=== PATIENT | female | born 1955 | race Caucasian/White ===

== ENCOUNTER 2021-09-15 08:29 | Inpatient (IN) ==
[2021-09-15] MEDS ORDERED: ONDANSETRON INJ 2 MG/ML 2 ML VIAL IV STA (08:46)
--- NOTE | 2021-09-15 08:52 | Emergency Department Note ---
History of Present Illness General Chief complaint: Fall Time Seen by Provider: 09/15/21 08:39 History of Present Illness Maximum Pain Intensity: 6 66-year-old female presents to the ED with a chief complaint of fall off the couch as well as nausea and vomiting for the past several days. The patient states that she recently started on some oral antibiotics for a cough. She states that since starting the antibiotic she has developed nausea and vomiting. She has not been able to eat anything for the past several days. She had fallen on the floor around 630 uncertain if a.m. or p.m. until her sisters found her. She does report some upper back pain related to her fall. She was brought to the hospital for evaluation. Denies any shortness of breath. No chest pains. No abdominal pains. No additional complaints. Home Medications Medication Instructions Recorded Confirmed Type aspirin 81 mg capsule 81 mg PO DAILY #30 cap 03/24/21 09/15/21 Rx atorvastatin 40 mg tablet 40 mg PO DAILY #30 tab 03/24/21 09/15/21 Rx blood sugar diagnostic (OneTouch #100 ea 03/24/21 09/15/21 Rx Verio test strips) carvedilol 6.25 mg tablet 6.25 mg PO BID #180 tab 03/24/21 09/15/21 Rx cetirizine 10 mg tablet (Zyrtec) 10 mg PO DAILY PRN #30 tab 03/24/21 09/15/21 Rx dulaglutide 0.75 mg/0.5 mL 0.75 mg SUBCUT .weekly #0.5 ml 03/24/21 09/15/21 Rx subcutaneous pen injector (Trulicity) fluticasone propionate 50 1 spray INTRANASAL DAILY #16 g 03/24/21 09/15/21 Rx mcg/actuation nasal spray,suspension (Flonase Allergy Relief) insulin aspart U-100 100 unit/mL 30 unit SUBCUT TID #15 ml 03/24/21 09/15/21 Rx (3 mL) subcutaneous pen (Novolog Flexpen U-100 Insulin aspart) insulin glargine 100 unit/mL 25 unit SUBCUT DAILY #10 ml 03/24/21 09/15/21 Rx subcutaneous solution (Lantus U-100 Insulin) lisinopril 2.5 mg tablet 2.5 mg PO DAILY #30 tab 03/24/21 09/15/21 Rx pantoprazole 40 mg tablet,delayed 40 mg PO DAILY #30 tab 03/24/21 09/15/21 Rx release pen needle, diabetic 31 gauge x #50 ea 03/24/21 09/15/21 Rx 5/16" (Easy Comfort Pen [place]) Allergies Allergy/AdvReac Type Severity Reaction Status Date / Time egg Allergy Mild Verified 09/15/21 10:35 Penicillins Allergy Mild Verified 09/15/21 10:35 codeine Allergy Verified 09/15/21 10:35 Sulfa (Sulfonamide Allergy Verified 09/15/21 10:35 Antibiotics) Past Med/Surg History Medical History History of heart attack Surgical History History of surgical removal of ganglion cyst Hx of cholecystectomy Hx of tonsillectomy Family History Other Breast cancer Diabetes Myocardial infarction Denies family history of Ovarian cancer Prostate cancer Colorectal cancer Social History Smoking Status: Unknown if ever smoked Age Quit Using Tobacco: 61; Second Hand Exposure: No; Hx Alcohol Use: No Hx Substance Use: No Preferred Language: Kazakh Visual Impairment: No Limitations Hearing Ability: Normal marital status: / Current Living Situation: Alone current occupational status: retired Feels Safe at Home: Yes Review of Systems A total of 10 systems reviewed and were otherwise negative Physical Exam Vital Signs Vital Signs - 24 hr 09/15/21 08:38 09/15/21 08:47 09/15/21 10:00 Temperature 36.9 C Temperature Source Oral Pulse Rate [Apical] 99 H Pulse Rhythm [Apical] Regular Respiratory Rate 18 18 18 Respiratory Effort / Characteristics Non-Labored Respiratory Depth Normal Respiratory Pattern Regular Blood Pressure 144/88 H Blood Pressure [Left Arm] 144/88 H Blood Pressure Mean 106 Blood Pressure Mean [Left Arm] 106 Blood Pressure Position [Left Arm] Lying Pulse Oximetry 98 98 Oxygen Delivery Method Room Air Room Air Room Air Sepsis Recent Fever Within 48 Hours No Sepsis New/Unexplained Change in Mental Status No Sepsis Action Taken by Nursing No Action Required CONSTITUTIONAL/VITAL SIGNS: Reviewed / noted above. GENERAL: Non-toxic in appearance. Strong smell of ketones in the room. Only confused with regards to recalling certain information especially regarding the events of the night. INTEGUMENTARY: Warm, dry, and [place]. HEAD: Normocephalic. EYES: without scleral icterus or trauma. ENT/OROPHARYNX: clear and slightly dry. LYMPHADENOPATHY/NECK: Is supple without lymphadenopathy or meningismus. RESPIRATORY: Clear to auscultation bilaterally. No increased work of breathing. CARDIOVASCULAR: Regular rate and rhythm. GI/ABDOMEN: Soft and nontender. No organomegaly or pulsatile mass. EXTREMITIES: Warm and well perfused. BACK: No CVA tenderness. NEUROLOGICAL: Intact without focal deficits. PSYCHIATRIC: normal affect. MUSCULOSKELETAL: Normally developed with good muscle tone. TRIAGE NURSING DOCUMENTATION REVIEWED. Course Administered Medications Discontinued Medications Sodium Chloride (Nss 1000ml) 1,000 mls @ 999 mls/hr IV .Q1H1M GELA Stop: 09/15/21 10:00 Last Admin: 09/15/21 09:16 Dose: 999 mls/hr Documented by: [id number] Ondansetron HCl (Ondansetron Inj 2 Mg/Ml 2 Ml Vial) 4 mg IV NOW STA Stop: 09/15/21 08:47 Last Admin: 09/15/21 09:17 Dose: 4 mg Documented by: [id number] Medical Decision Making Differential Diagnosis Differential includes acute coronary syndrome, myocardial infarction, CVA, TIA, anemia, infection, pneumonia, UTI, pyelonephritis, poor nutrition, dehydration, electrolyte disturbance,hypoglycemia, ketoacidosis, spine injury, rib injury. Medical Records Attestation: I reviewed the patient's medical records. Home Medications Current Medication List: was personally reviewed by me Laboratory Data Attestation: I reviewed the patient's lab results. Result diagrams: 09/15/21 08:58 09/15/21 08:58 Lab Results 09/15/21 09/15/21 09/15/21 Range/Units 08:48 08:58 08:58 WBC (4.8-10.8) K/uL RBC (4.2-5.4) M/uL Hgb (12.0-16.0) g/dL Hct (37-47) % MCV (80-100) fL MCH (25-34) pg MCHC (32-36) g/dL RDW Std Deviation (36.4-46.3) fL RDW Coeff of Charles (11.5-14.5) % Plt Count (130-400) K/uL MPV (7.4-10.4) fL Immature Gran % (Auto) % Neut % (Auto) % Lymph % (Auto) % [place] % (Auto) % Eos % (Auto) % Baso % (Auto) % Neut # (Auto) (1.4-6.5) K/uL Lymph # (Auto) (1.2-3.4) K/uL [place] # (Auto) (0.11-0.59) K/uL Eos # (Auto) (0-0.5) K/uL Baso # (Auto) (0-0.2) K/uL Immature Gran # (Auto) (0.00-0.02) K/uL VBG pH (7.36-7.41) VBG pCO2 (38-50) mmHg VBG pO2 mmHg VBG HCO3 mmol/L VBG O2 Saturation % VBG Base Excess mEq/L Barometric Pressure mm/Hg Sodium 127 L (136-145) mmol/L Potassium 4.5 (3.5-5.1) mmol/L Chloride 93 L (98-107) mmol/L Carbon Dioxide 12 L (21-32) mmol/L Anion Gap 22 H (3-11) BUN 26 H (6-23) mg/dl Creatinine 1.02 (0.6-1.2) mg/dl Est Cr Clr Drug Dosing 51.0 ml/min Est GFR ( Amer) 65.9 ml/min Est GFR (Non-Af Amer) 56.9 ml/min BUN/Creatinine Ratio 25.5 H (10-20) Glucose 378 H* (70-99(Fasting)) mg/dl Lactate 1.0 (0.4-2.0) mmol/L Calcium 9.5 (8.5-10.1) mg/dl Magnesium 1.9 (1.7-2.4) mg/dl Total Bilirubin 0.6 (0.2-1.0) mg/dl AST 13 (13-39) U/L ALT 9 (7-52) U/L Alkaline Phosphatase 120 H (34-104) U/L Total Creatine Kinase 76 (26-192) U/L Total Protein 8.0 (6.0-8.3) gm/dl Albumin 3.5 (3.4-5.0) gm/dl Globulin 4.5 H (2.5-4.0) gm/dl Albumin/Globulin Ratio 0.8 L (0.9-2) TSH (0.300-4.500) uIu/ml Urine Color Yellow Urine Appearance Cloudy A (Clear) Urine pH 5.0 (4.5-7.5) Ur Specific [place] 1.029 (1.000-1.030) Urine Protein 2+ H (Negative) Urine Glucose (UA) 3+ H (Negative) Urine Ketones 4+ H (Negative) Urine Blood 1+ H (Negative) Urine Nitrite Negative (Negative) Urine Bilirubin Negative (Negative) Urine Urobilinogen Negative (Negative) Ur Leukocyte Esterase Negative (Negative) Urine WBC (Auto) >30 H (0-5) /hpf Urine RBC (Auto) 0-4 (0-4) /hpf U Hyaline Cast (Auto) 1-5 (0-5) /lpf U Epithel Cells (Auto) 10-20 H (0-5) /lpf Urine Bacteria (Auto) 1+ H (Negative) Urine Yeast Budding A (None Prsent) SARS-CoV-2, RNA, NAAT (NEGATIVE) 09/15/21 09/15/21 09/15/21 Range/Units 08:58 08:58 08:58 WBC 16.53 H (4.8-10.8) K/uL RBC 4.65 (4.2-5.4) M/uL Hgb 13.8 (12.0-16.0) g/dL Hct 40.7 (37-47) % MCV 87.5 (80-100) fL MCH 29.7 (25-34) pg MCHC 33.9 (32-36) g/dL RDW Std Deviation 40.8 (36.4-46.3) fL RDW Coeff of [place] 12.8 (11.5-14.5) % Plt Count 376 (130-400) K/uL MPV 10.3 (7.4-10.4) fL Immature Gran % (Auto) 0.2 % Neut % (Auto) 90.4 % Lymph % (Auto) 5.4 % [place] % (Auto) 3.9 % Eos % (Auto) 0.0 % Baso % (Auto) 0.1 % Neut # (Auto) 14.93 H (1.4-6.5) K/uL Lymph # (Auto) 0.89 L (1.2-3.4) K/uL [place] # (Auto) 0.65 H (0.11-0.59) K/uL Eos # (Auto) 0.00 (0-0.5) K/uL Baso # (Auto) 0.02 (0-0.2) K/uL Immature Gran # (Auto) 0.04 H (0.00-0.02) K/uL VBG pH 7.24 L (7.36-7.41) VBG pCO2 31 L (38-50) mmHg VBG pO2 33 mmHg VBG HCO3 13 mmol/L VBG O2 Saturation 63.7 % VBG Base Excess -13.1 mEq/L Barometric Pressure 737.9 mm/Hg Sodium (136-145) mmol/L Potassium (3.5-5.1) mmol/L Chloride (98-107) mmol/L Carbon Dioxide (21-32) mmol/L Anion Gap (3-11) BUN (6-23) mg/dl Creatinine (0.6-1.2) mg/dl Est Cr Clr Drug Dosing ml/min Est GFR ( Amer) ml/min Est GFR (Non-Af Amer) ml/min BUN/Creatinine Ratio (10-20) Glucose (70-99(Fasting)) mg/dl Lactate (0.4-2.0) mmol/L Calcium (8.5-10.1) mg/dl Magnesium (1.7-2.4) mg/dl Total Bilirubin (0.2-1.0) mg/dl AST (13-39) U/L ALT (7-52) U/L Alkaline Phosphatase (34-104) U/L Total Creatine Kinase (26-192) U/L Total Protein (6.0-8.3) gm/dl Albumin (3.4-5.0) gm/dl Globulin (2.5-4.0) gm/dl Albumin/Globulin Ratio (0.9-2) TSH 1.477 (0.300-4.500) uIu/ml Urine Color Urine Appearance (Clear) Urine pH (4.5-7.5) Ur Specific [place] (1.000-1.030) Urine Protein (Negative) Urine Glucose (UA) (Negative) Urine Ketones (Negative) Urine Blood (Negative) Urine Nitrite (Negative) Urine Bilirubin (Negative) Urine Urobilinogen (Negative) Ur Leukocyte Esterase (Negative) Urine WBC (Auto) (0-5) /hpf Urine RBC (Auto) (0-4) /hpf U Hyaline Cast (Auto) (0-5) /lpf U Epithel Cells (Auto) (0-5) /lpf Urine Bacteria (Auto) (Negative) Urine Yeast (None Prsent) SARS-CoV-2, RNA, NAAT (NEGATIVE) 09/15/21 Range/Units 09:49 WBC (4.8-10.8) K/uL RBC (4.2-5.4) M/uL Hgb (12.0-16.0) g/dL Hct (37-47) % MCV (80-100) fL MCH (25-34) pg MCHC (32-36) g/dL RDW Std Deviation (36.4-46.3) fL RDW Coeff of Charles (11.5-14.5) % Plt Count (130-400) K/uL MPV (7.4-10.4) fL Immature Gran % (Auto) % Neut % (Auto) % Lymph % (Auto) % [place] % (Auto) % Eos % (Auto) % Baso % (Auto) % Neut # (Auto) (1.4-6.5) K/uL Lymph # (Auto) (1.2-3.4) K/uL [place] # (Auto) (0.11-0.59) K/uL Eos # (Auto) (0-0.5) K/uL Baso # (Auto) (0-0.2) K/uL Immature Gran # (Auto) (0.00-0.02) K/uL VBG pH (7.36-7.41) VBG pCO2 (38-50) mmHg VBG pO2 mmHg VBG HCO3 mmol/L VBG O2 Saturation % VBG Base Excess mEq/L Barometric Pressure mm/Hg Sodium (136-145) mmol/L Potassium (3.5-5.1) mmol/L Chloride (98-107) mmol/L Carbon Dioxide (21-32) mmol/L Anion Gap (3-11) BUN (6-23) mg/dl Creatinine (0.6-1.2) mg/dl Est Cr Clr Drug Dosing ml/min Est GFR ( Amer) ml/min Est GFR (Non-Af Amer) ml/min BUN/Creatinine Ratio (10-20) Glucose (70-99(Fasting)) mg/dl Lactate (0.4-2.0) mmol/L Calcium (8.5-10.1) mg/dl Magnesium (1.7-2.4) mg/dl Total Bilirubin (0.2-1.0) mg/dl AST (13-39) U/L ALT (7-52) U/L Alkaline Phosphatase (34-104) U/L Total Creatine Kinase (26-192) U/L Total Protein (6.0-8.3) gm/dl Albumin (3.4-5.0) gm/dl Globulin (2.5-4.0) gm/dl Albumin/Globulin Ratio (0.9-2) TSH (0.300-4.500) uIu/ml Urine Color Urine Appearance (Clear) Urine pH (4.5-7.5) Ur Specific [place] (1.000-1.030) Urine Protein (Negative) Urine Glucose (UA) (Negative) Urine Ketones (Negative) Urine Blood (Negative) Urine Nitrite (Negative) Urine Bilirubin (Negative) Urine Urobilinogen (Negative) Ur Leukocyte Esterase (Negative) Urine WBC (Auto) (0-5) /hpf Urine RBC (Auto) (0-4) /hpf U Hyaline Cast (Auto) (0-5) /lpf U Epithel Cells (Auto) (0-5) /lpf Urine Bacteria (Auto) (Negative) Urine Yeast (None Prsent) SARS-CoV-2, RNA, NAAT NEGATIVE (NEGATIVE) Imaging Data Radiologist's Impression: Chest X-Ray 09/15/21 08:47 XR chest 1V portable HISTORY: 66 years-old Female weakness acute chest and back pain with weakness COMPARISON: CT thoracic spine of same day TECHNIQUE: Portable AP view of the chest FINDINGS: The cardiomediastinal and hilar silhouettes are within normal limits. No pneumothorax, pleural effusion, airspace consolidation or overt pulmonary edema. Degenerative changes of the shoulders and spine. IMPRESSION: No acute process. ACT 112: Negative or not required by law. The above report was generated using voice recognition software. It may contain grammatical, syntax or spelling errors. Electronically signed by: Rick Gallego M.D. 09/15/2021 10:[address] 09/15/21 08:51 CT cervical spine wo con CLINICAL HISTORY: fall TECHNIQUE: Multidetector row helical CT of the cervical spine was performed without administration of intravenous contrast. Coronal and sagittal reformations were obtained. Automated dose lowering techniques and/or adjustment according to patient size were utilized for this exam. Comparison: None available at the time of this dictation. FINDINGS: No acute fractures or subluxations are identified. The vertebral body heights and disk spaces are well maintained. The alignment is normal. Nuchal ligament calcifications are seen. IMPRESSION: No evidence of acute bony injury. ACT 112: Negative or not required by law. Electronically signed by: Warren Patel M.D. 09/15/2021 10:[address] 09/15/21 08:51 CT head/brain wo con CLINICAL HISTORY: 66 years-old Female with fall, confusion. Acute head injury status post fall. Acutely altered mental status TECHNIQUE: Multiple axial CT images of the head were obtained without contrast. A dose lowering technique was utilized adhering to the principles of ALARA. COMPARISON: CT cervical and thoracic spine studies of same day FINDINGS: No acute intracranial hemorrhage, midline shift, intracranial mass, hydrocephalus, territorial ischemia or abnormal extra-axial collection. Age- related involutional changes. White matter hypodensities suggestive of chronic microvascular ischemic disease. Mild ventriculomegaly, likely on an ex vacuo ba sis. Chronic periventricular left frontal lobe infarcts. Cerebral vascular calcifications. The calvarium is intact. Mucosal thickening of the paranasal sinuses, moderate within the ethmoid air cells. Aerosolized secretions within the left sphenoid sinus. Mastoid air cells and middle ear cavities are clear. Unremarkable soft tissues and orbits. IMPRESSION: No acute intracranial abnormality or calvarial fracture. ACT 112: Negative or not required by law. The above report was generated using voice recognition software. It may contain grammatical, syntax or spelling errors. Electronically signed by: Rick Gallego M.D. 09/15/2021 9:[address] 09/15/21 08:51 CT thoracic spine wo con HISTORY: 66 years-old Female fall acute mid back pain status post fall COMPARISON: CT cervical spine of same day TECHNIQUE: Multiple axial CT images of the thoracic spine were obtained without the use of IV contrast. Coronal and sagittal reformatted images were also submitted for review. A dose lowering technique was used consistent with the principals of ALINA. FINDINGS: Cardiomegaly with extensive mitral annular and coronary artery calcifications. Ectasia of the ascending thoracic aorta measures up to 3.9 cm. Dilated pulmonary artery may represent pulmonary arterial hypertension. Mediastinal and hilar lymph nodes measure within the upper limits of normal at 10 mm which are nonspecific. Tiny hiatal hernia suggested. Cholecystectomy. Bronchial wall thickening with mucous plugging. No pneumothorax identified. There is no paravertebral edema identified. There is mostly mild multilevel int ervertebral disc space narrowing with associated spondylitic spurring and facet arthrosis. No acute fracture or subluxation is identified. The imaged ribs appear intact. No high-grade central canal or neural foraminal narrowing is identified. IMPRESSION: No acute fracture or subluxation. ACT 112: Negative or not required by law. The above report was generated using voice recognition software. It may contain grammatical, syntax or spelling errors. Electronically signed by: Rick Gallego M.D. 09/15/2021 10:00 AM ECG Data Attestation: I personally reviewed and interpreted this ECG as follows: Additional Comments: Twelve-lead EKG: Per my interpretation shows a sinus tach at a rate of 103. No ST elevation. No PVCs. Normal QTC. MDM Narrative 66-year-old female presents with concerns of nausea and vomiting as well as decreased p.o. intake for the past several days. She has also not been able to take her insulin. She fell sometime in the past 24 hours. Poor historian about the timing of the events. Presents by EMS. Blood sugar was in the 300 range for EMS. She has had a cough for several days and states that she was taking an antibiotic for several days. She has been vomiting for the past several days, she feels related to the antibiotic. She has some upper back pain related to falling off the couch. She has generalized weakness. Seems mildly confused about the events on exam. The patient's white blood cell count is elevated 16,0 00. Glucose was 378. BUN is 26. Sodium is 127. TSH was normal. Anion gap is 22. Bicarb is 12. CT scan of the head, C-spine and T-spine were negative. Chest x-ray was negative for acute disease. COVID test was negative. The patient was given IV fluids. She was given 1 L of normal saline. 4 mg IV Zofran. 6 units of subcu insulin and IV Rocephin 2 g. She will be seen by the hospitalist for further evaluation and care. Impression & Plan Nausea & vomiting, Acute hyperglycemia, Diabetic ketoacidosis, UTI (urinary tract infection), Acute dehydration, Fall, Weakness Discharge Plan Visit Data Chief Complaint: Fall ED Provider: Zack Leyva Discharge Problem: Nausea & vomiting, Acute hyperglycemia, Diabetic ketoacidosis, UTI (urinary tract infection), Acute dehydration, Fall, Weakness Patient Disposition: Being Evaluated by Hospitalist Forms Stand Alone Forms: [facility] Prescriptions Prescriptions: No Action atorvastatin 40 mg tablet 40 mg PO DAILY Qty: 30 RF: 2 Trulicity 0.75 mg/0.5 mL pen injector 0.75 mg subcut .weekly Qty: 0.5 RF: 0 fluticasone propionate [Flonase Allergy Relief] 50 mcg/actuation spray,suspension 1 spray intranasal DAILY Qty: 16 RF: 2 cetirizine [Zyrtec] 10 mg tablet 10 mg PO DAILY PRN (Reason: allergy symptoms) Qty: 30 RF: 0 Lantus U-100 Insulin 100 unit/mL solution 25 unit subcut DAILY Qty: 10 RF: 3 insulin aspart U-100 [Novolog Flexpen U-100 Insulin] 100 unit/mL (3 mL) insulin pen 30 unit subcut TID Qty: 15 RF: 3 (DME) pen needle, diabetic [Easy Comfort Pen [place]] 31 gauge x 5/16" needle See Rx Instructions .ROUTE Qty: 50 RF: 0 (DME) OneTouch Verio test strips Strip See Rx Instructions .ROUTE Qty: 100 RF: 0 aspirin 81 mg capsule 81 mg PO DAILY Qty: 30 RF: 2 carvedilol 6.25 mg tablet 6.25 mg PO BID Qty: 180 RF: 3 lisinopril 2.5 mg tablet 2.5 mg PO DAILY Qty: 30 RF: 2 pantoprazole 40 mg tablet,delayed release (DR/EC) 40 mg PO DAILY Qty: 30 RF: 2 Referrals Referrals: PCP,NO [Primary Care Provider] -
[2021-09-15] MEDS ORDERED: SODIUM CHLORIDE 0.9% 1000ML 1,000 ML IV SCH (09:00)
[2021-09-15 09:01] LABS: Appearance Urine Cloudy (Clear); Bilirubin Urine Negative (Negative); Blood Urine 1+ (Negative); Color Urine Yellow; Glucose Urine UA 3+ (Negative); Ketones Urine 4+ (Negative); Leukocyte Esterase Urine Negative (Negative); Nitrite Urine Negative (Negative); Protein Urine 2+ (Negative); RBC Urine Automated 0-4 /hpf (0-4); Specific Gravity Urine 1.029 (1.000-1.030); Urobilinogen Urine Negative (Negative); WBC Urine Automated >30 /hpf (0-5)
[2021-09-15 09:25] LABS: Bacteria Urine Automated 1+ (Negative)
[2021-09-15 09:28] LABS: Base Excess VBG -13.1 mEq/L; Oxygen Saturation VBG 63.7 %; pH VBG 7.24 (7.36-7.41)
[2021-09-15 09:34] LABS: Basophils # (auto) 0.02 K/uL (0-0.2); Basophils % (auto) 0.1 %; Hematocrit (blood only) 40.7 % (37-47); Hemoglobin 13.8 g/dL (12.0-16.0); Immature Granulocytes # (auto) 0.04 K/uL (0.00-0.02); Immature Granulocytes % (auto) 0.2 %; Lymphocytes # (auto) 0.89 K/uL (1.2-3.4); Lymphocytes % (auto) 5.4 %; Mean Corpuscular Hemoglobin 29.7 pg (25-34); Mean Corpuscular Hgb Conc 33.9 g/dL (32-36); Mean Corpuscular Volume 87.5 fL (80-100); Mean Platelet Volume 10.3 fL (7.4-10.4); Monocytes # (auto) 0.65 K/uL (0.11-0.59); Monocytes % (auto) 3.9 %; Neutrophils # (auto) 14.93 K/uL (1.4-6.5); Neutrophils % (auto) 90.4 %; Platelet Count 376 K/uL (130-400); RDW Coefficient of Variation 12.8 % (11.5-14.5); RDW Standard Deviation 40.8 fL (36.4-46.3); Red Blood Count 4.65 M/uL (4.2-5.4); White Blood Count 16.53 K/uL (4.8-10.8)
--- NOTE | 2021-09-15 09:52 | CT Scan Report ---
CT head/brain wo con CLINICAL HISTORY: 66 years-old Female with fall, confusion. Acute head injury status post fall. Acut tray altered mental status TECHNIQUE: Multiple axial CT images of the head were obtained without contrast. A dose lowering tech nique was utilized adhering to the principles of ALARA. COMPARISON: CT cervical and thoracic spine studies of same day FINDINGS: No acute intracranial hemorrhage, midline shift, intracranial mass, hydrocephalus, territorial ischem ia or abnormal extra-axial collection. Age-related involutional changes. White matter hypodensities s uggestive of chronic microvascular ischemic disease. Mild ventriculomegaly, likely on an ex vacuo bas is. Chronic periventricular left frontal lobe infarcts. Cerebral vascular calcifications. The calvarium is intact. Mucosal thickening of the paranasal sinuses, moderate within the ethmoid ai r cells. Aerosolized secretions within the left sphenoid sinus. Mastoid air cells and middle ear cavi ties are clear. Unremarkable soft tissues and orbits. IMPRESSION: No acute intracranial abnormality or calvarial fracture. ACT 112: Negative or not required by law. The above report was generated using voice recognition software. It may contain grammatical, syntax o r spelling errors. Electronically signed by: Rick Gallego M.D. 09/15/2021 9:49 AM
--- NOTE | 2021-09-15 10:01 | CT Scan Report ---
CT thoracic spine wo con HISTORY: 66 years-old Female fall acute mid back pain status post fall COMPARISON: CT cervical spine of same day TECHNIQUE: Multiple axial CT images of the thoracic spine were obtained without the use of IV contras t. Coronal and sagittal reformatted images were also submitted for review. A dose lowering technique was used consistent with the principals of ALINA. FINDINGS: Cardiomegaly with extensive mitral annular and coronary artery calcifications. Ectasia of the ascendi ng thoracic aorta measures up to 3.9 cm. Dilated pulmonary artery may represent pulmonary arterial hy pertension. Mediastinal and hilar lymph nodes measure within the upper limits of normal at 10 mm whic h are nonspecific. Tiny hiatal hernia suggested. Cholecystectomy. Bronchial wall thickening with muco us plugging. No pneumothorax identified. There is no paravertebral edema identified. There is mostly mild multilevel intervertebral disc space narrowing with associated spondylitic spurring and facet arthrosis. No acute fracture or subluxation is identified. The imaged ribs appear intact. No high-grade central canal or neural foraminal narrow ing is identified. IMPRESSION: No acute fracture or subluxation. ACT 112: Negative or not required by law. The above report was generated using voice recognition software. It may contain grammatical, syntax o r spelling errors. Electronically signed by: Rick Gallego M.D. 09/15/2021 10:00 AM
--- NOTE | 2021-09-15 10:04 | CT Scan Report ---
CT cervical spine wo con CLINICAL HISTORY: fall TECHNIQUE: Multidetector row helical CT of the cervical spine was performed without administration of intravenous contrast. Coronal and sagittal reformations were obtained. Automated dose lowering techn iques and/or adjustment according to patient size were utilized for this exam. Comparison: None available at the time of this dictation. FINDINGS: No acute fractures or subluxations are identified. The vertebral body heights and disk spaces are wel l maintained. The alignment is normal. Nuchal ligament calcifications are seen. IMPRESSION: No evidence of acute bony injury. ACT 112: Negative or not required by law. Electronically signed by: Warren Patel M.D. 09/15/2021 10:02 AM
[2021-09-15 10:19] LABS: Albumin Globulin Ratio 0.8 (0.9-2); Albumin Level 3.5 gm/dl (3.4-5.0); BUN Creatinine Ratio 25.5 (10-20); Bilirubin,Total 0.6 mg/dl (0.2-1.0); Calcium 9.5 mg/dl (8.5-10.1); Est GFR (African American) 65.9 ml/min; Est GFR (Non-African American) 56.9 ml/min; Globulin 4.5 gm/dl (2.5-4.0); Magnesium 1.9 mg/dl (1.7-2.4); Potassium 4.5 mmol/L (3.5-5.1)
--- NOTE | 2021-09-15 10:24 | XRay Report ---
XR chest 1V portable HISTORY: 66 years-old Female weakness acute chest and back pain with weakness COMPARISON: CT thoracic spine of same day TECHNIQUE: Portable AP view of the chest FINDINGS: The cardiomediastinal and hilar silhouettes are within normal limits. No pneumothorax, pleural effusi on, airspace consolidation or overt pulmonary edema. Degenerative changes of the shoulders and spine. IMPRESSION: No acute process. ACT 112: Negative or not required by law. The above report was generated using voice recognition software. It may contain grammatical, syntax o r spelling errors. Electronically signed by: Rick Gallego M.D. 09/15/2021 10:22 AM
[2021-09-15] MEDS ORDERED: cefTRIAXone SODIUM 2,000 MG/70 ML BAG IV STA (10:38)
[2021-09-15] MEDS ORDERED: INSULIN ASPART PER UNIT SC STA (10:38)
[2021-09-15] MEDS ORDERED: STAT IV Infusion **Titration per Protocol STA ×2 (11:04)
--- NOTE | 2021-09-15 11:12 | History & Physical Report ---
Date of Service September 15, 2021 Assessment & Plan (1) Diabetic ketoacidosis: (2) Acute dehydration: (3) Fall: (4) Weakness: (5) UTI (urinary tract infection): (6) Type 2 diabetes mellitus: Plan: - Admit to PCU for DKA - Start on insulin gtt, 1/2NSS + 40 KCL at 125 ml, DKA protocol - Pt got 1 L NSS, insulin 6 U in the ER - Likely worsened secondary to infectious source, most likely is UTI, follow urine culture and has been started on ceftriaxone IV - VBG with pH 7.24, Co2 31, HCO3 13, - Hyponatremic with Na 127, K 4.5, carbon dioxide 12, AG 22, BUn 26, Cr. 1.02, glucose 378 - Hold on subq insulin home regimen while on gtt, lantus 25 U QPM on hold as well for now - Allow a clear liquid diet - Imaging studies completed of the thoracic, cervical, head are negative - PT/OT consults placed (7) CAD (coronary artery disease): (8) Hypertension: (9) Dyslipidemia: Plan: - Continue lisinopril, carvedilol, atorvastatin and aspirin (10) COPD (chronic obstructive pulmonary disease): Plan: - Stable, no acute exacerbation (11) Severe obesity: Plan: - BMI 35.6, encourage weight loss, diet and exercise throughout hospital stay DVT ppx: - teds, scds, heparin subq CODE: Full code Dispo: From home, likely to remain in the hospital x 1-2 days History of Present Illness Chief Complaint: illness Primary Care Provider: NO PCP This is a 66 yo F with PMHx of DM II, CAD, HTN, HLD, COPD, GERD, bipolar disorder and obesity with BMI of 35.6 who presents to the ER with acute illness status post fall sustained at home. When I ask how the patient is she responds "very thirsty". She has been unable to tolerate oral intake the last few days due to not feeling well, stated that every time she ate something she became nauseous and threw up. She reports using her insulin to me, however sign out from the ER indicated that she had not been using insulin at home. It is difficult to say due to her confusion if she was truly taking insulin correctly at home or not. She reports being very weak whenever she got up from her bed and walked to the living room at some point this morning. Pt was concerned that she hurt herself when she fell near her couch - no injuries are visible. She admits to significant urinary frequency over the past 2-3 days, but denies burning, lower abdominal pain or hematuria, fevers, chills or sweats. Unfortunately she is confused and cannot offer specifics; unable to answer what month it is, the year, the name of the hospital this morning. Pt did not taking any of her other morning medications today. Currently she lives at home by herself, and relies on her 2 sisters to help take care of her. UA appears to be infected, suspicious for UTI, and has been started on IV ceftriaxone in the ER. WBC is elevated at 17 K. Upon presentation VBG shows pH of 7.3, CO2 31, chemistry panel shows sodium 127, potassium 4.5, carbon dioxide 12, anion gap 22, glucose of 378. Allergies Allergy/AdvReac Type Severity Reaction Status Date / Time egg Allergy Mild Verified 09/15/21 10:35 Penicillins Allergy Mild Verified 09/15/21 10:35 codeine Allergy Verified 09/15/21 10:35 Sulfa (Sulfonamide Allergy Verified 09/15/21 10:35 Antibiotics) Home Medications Medication Instructions Recorded Confirmed Type aspirin 81 mg capsule 81 mg PO DAILY #30 cap 03/24/21 09/15/21 Rx atorvastatin 40 mg tablet 40 mg PO DAILY #30 tab 03/24/21 09/15/21 Rx blood sugar diagnostic (OneTouch #100 ea 03/24/21 09/15/21 Rx Verio test strips) carvedilol 6.25 mg tablet 6.25 mg PO BID #180 tab 03/24/21 09/15/21 Rx cetirizine 10 mg tablet (Zyrtec) 10 mg PO DAILY PRN #30 tab 03/24/21 09/15/21 Rx dulaglutide 0.75 mg/0.5 mL 0.75 mg SUBCUT .weekly #0.5 ml 03/24/21 09/15/21 Rx subcutaneous pen injector (Trulicity) fluticasone propionate 50 1 spray INTRANASAL DAILY #16 g 03/24/21 09/15/21 Rx mcg/actuation nasal spray,suspension (Flonase Allergy Relief) insulin aspart U-100 100 unit/mL 30 unit SUBCUT TID #15 ml 03/24/21 09/15/21 Rx (3 mL) subcutaneous pen (Novolog Flexpen U-100 Insulin aspart) insulin glargine 100 unit/mL 25 unit SUBCUT DAILY #10 ml 03/24/21 09/15/21 Rx subcutaneous solution (Lantus U-100 Insulin) lisinopril 2.5 mg tablet 2.5 mg PO DAILY #30 tab 03/24/21 09/15/21 Rx pantoprazole 40 mg tablet,delayed 40 mg PO DAILY #30 tab 03/24/21 09/15/21 Rx release pen needle, diabetic 31 gauge x #50 ea 03/24/21 09/15/21 Rx 5/16" (Easy Comfort Pen Cinebar) Past Med/Surg History Medical History History of heart attack Surgical History History of surgical removal of ganglion cyst Hx of cholecystectomy Hx of tonsillectomy Family History Other Breast cancer Diabetes Myocardial infarction Denies family history of Ovarian cancer Prostate cancer Colorectal cancer Social History Smoking Status: Unknown if ever smoked Age Quit Using Tobacco: 61; Second Hand Exposure: No; Hx Alcohol Use: No Hx Substance Use: No Preferred Language: Gabonese Visual Impairment: No Limitations Hearing Ability: Normal marital status: / Current Living Situation: Alone current occupational status: retired Feels Safe at Home: Yes Review of Systems Review of Systems: Constitutional: No fever, sweats or chills Eyes: No diplopia, no worsening or blurred vision ENT: normal hearing, no trouble swallowing Respiratory: No cough, sputum, dyspnea at rest or on exertion Cardiovascular: No chest pain, tightness or palpitations Abdomen: No pain, + nausea, + vomiting, reports bowels are not normal, but cannot further describe if she has been constipated or having diarrhea. Unknown last bowel movement. : + Increased urinary frequency, no dysuria, hematuria Musculoskeletal: No joint pain, calf pain, swelling Neurologic: No weakness, numbness/tingling, or balance problems Psychiatric: No anxiety or depression Skin: No rash or itch Physical Exam Physical Exam: General: awake, disoriented to place and time, no apparent distress, able to participate in conversation although is unable to provide specific details, + obses with BMI=35.6 Head: Normocephalic, atraumatic ENT: PERRL, EOMI, right eye is shut, somewhat swollen and conjunctiva is mildly erythematous, no pharyngeal exudate, mucous membranes moist Chest: Clear to auscultation, on room air with O2 sats at 98% no adventitious breath sounds Cardiac: Regular rate and rhythm, no murmur, no JVD, normal peripheral pulses, good capillary refill Abdominal: NABS x 4 quadrants, soft, nondistended, nontender to palpation, no rebound or guarding Extremities: Normal inspection, no peripheral edema or erythema, calfs nontender to palpation Psych: Normal mood and affect Neuro: AAO to self but not date or time, unable to answer specific questions, somewhat confused, strength intact bilaterally and rated 4/5, no motor deficits, speech is clear, no peripheral sensory deficits Results & Data Results & Data ([facility]) Vital Signs (Past 12 Hours) Vital Signs Temp Pulse Resp BP BP Pulse Ox 09/15/21 10:00 99 H 18 144/88 H 98 09/15/21 08:47 18 09/15/21 08:38 36.9 C 18 144/88 H 98 Laboratory Results 09/15/21 08:48 Urine Culture - Pending Urine,Clean Catch 09/15/21 09/15/21 09/15/21 09:49 08:58 08:58 WBC 16.53 H RBC 4.65 Hgb 13.8 Hct 40.7 MCV 87.5 MCH 29.7 MCHC 33.9 RDW Std Deviation 40.8 RDW Coeff of Charles 12.8 Plt Count 376 MPV 10.3 Immature Gran % (Auto) 0.2 Neut % (Auto) 90.4 Lymph % (Auto) 5.4 [place] % (Auto) 3.9 Eos % (Auto) 0.0 Baso % (Auto) 0.1 Neut # (Auto) 14.93 H Lymph # (Auto) 0.89 L [place] # (Auto) 0.65 H Eos # (Auto) 0.00 Baso # (Auto) 0.02 Immature Gran # (Auto) 0.04 H VBG pH VBG pCO2 VBG pO2 VBG HCO3 VBG O2 Saturation VBG Base Excess Barometric Pressure Sodium Potassium Chloride Carbon Dioxide Anion Gap BUN Creatinine Est Cr Clr Drug Dosing Est GFR ( Amer) Est GFR (Non-Af Amer) BUN/Creatinine Ratio Glucose Lactate Calcium Magnesium Total Bilirubin AST ALT Alkaline Phosphatase Total Creatine Kinase Total Protein Albumin Globulin Albumin/Globulin Ratio TSH 1.477 Urine Color Urine Appearance Urine pH Ur Specific [place] Urine Protein Urine Glucose (UA) Urine Ketones Urine Blood Urine Nitrite Urine Bilirubin Urine Urobilinogen Ur Leukocyte Esterase Urine WBC (Auto) Urine RBC (Auto) U Hyaline Cast (Auto) U Epithel Cells (Auto) Urine Bacteria (Auto) Urine Yeast SARS-CoV-2, RNA, NAAT NEGATIVE 09/15/21 09/15/21 09/15/21 08:58 08:58 08:58 WBC RBC Hgb Hct MCV MCH MCHC RDW Std Deviation RDW Coeff of [place] Plt Count MPV Immature Gran % (Auto) Neut % (Auto) Lymph % (Auto) [place] % (Auto) Eos % (Auto) Baso % (Auto) Neut # (Auto) Lymph # (Auto) [place] # (Auto) Eos # (Auto) Baso # (Auto) Immature Gran # (Auto) VBG pH 7.24 L VBG pCO2 31 L VBG pO2 33 VBG HCO3 13 VBG O2 Saturation 63.7 VBG Base Excess -13.1 Barometric Pressure 737.9 Sodium 127 L Potassium 4.5 Chloride 93 L Carbon Dioxide 12 L Anion Gap 22 H BUN 26 H Creatinine 1.02 Est Cr Clr Drug Dosing 51.0 Est GFR ( Amer) 65.9 Est GFR (Non-Af Amer) 56.9 BUN/Creatinine Ratio 25.5 H Glucose 378 H* Lactate 1.0 Calcium 9.5 Magnesium 1.9 Total Bilirubin 0.6 AST 13 ALT 9 Alkaline Phosphatase 120 H Total Creatine Kinase 76 Total Protein 8.0 Albumin 3.5 Globulin 4.5 H Albumin/Globulin Ratio 0.8 L TSH Urine Color Urine Appearance Urine pH Ur Specific [place] Urine Protein Urine Glucose (UA) Urine Ketones Urine Blood Urine Nitrite Urine Bilirubin Urine Urobilinogen Ur Leukocyte Esterase Urine WBC (Auto) Urine RBC (Auto) U Hyaline Cast (Auto) U Epithel Cells (Auto) Urine Bacteria (Auto) Urine Yeast SARS-CoV-2, RNA, NAAT 05/13/22 08:48 WBC RBC Hgb Hct MCV MCH MCHC RDW Std Deviation RDW Coeff of [place] Plt Count MPV Immature Gran % (Auto) Neut % (Auto) Lymph % (Auto) [place] % (Auto) Eos % (Auto) Baso % (Auto) Neut # (Auto) Lymph # (Auto) [place] # (Auto) Eos # (Auto) Baso # (Auto) Immature Gran # (Auto) VBG pH VBG pCO2 VBG pO2 VBG HCO3 VBG O2 Saturation VBG Base Excess Barometric Pressure Sodium Potassium Chloride Carbon Dioxide Anion Gap BUN Creatinine Est Cr Clr Drug Dosing Est GFR ( Amer) Est GFR (Non-Af Amer) BUN/Creatinine Ratio Glucose Lactate Calcium Magnesium Total Bilirubin AST ALT Alkaline Phosphatase Total Creatine Kinase Total Protein Albumin Globulin Albumin/Globulin Ratio TSH Urine Color Yellow Urine Appearance Cloudy A Urine pH 5.0 Ur Specific [place] 1.029 Urine Protein 2+ H Urine Glucose (UA) 3+ H Urine Ketones 4+ H Urine Blood 1+ H Urine Nitrite Negative Urine Bilirubin Negative Urine Urobilinogen Negative Ur Leukocyte Esterase Negative Urine WBC (Auto) >30 H Urine RBC (Auto) 0-4 U Hyaline Cast (Auto) 1-5 U Epithel Cells (Auto) 10-20 H Urine Bacteria (Auto) 1+ H Urine Yeast Budding A SARS-CoV-2, RNA, NAAT Diagnostic Findings Chest X-Ray 09/15/21 08:47 XR chest 1V portable HISTORY: 66 years-old Female weakness acute chest and back pain with weakness COMPARISON: CT thoracic spine of same day TECHNIQUE: Portable AP view of the chest FINDINGS: The cardiomediastinal and hilar silhouettes are within normal limits. No pneumothorax, pleural effusion, airspace consolidation or overt pulmonary edema. Degenerative changes of the shoulders and spine. IMPRESSION: No acute process. ACT 112: Negative or not required by law. The above report was generated using voice recognition software. It may contain grammatical, syntax or spelling errors. Electronically signed by: Rick Gallego M.D. 09/15/2021 10:[address] 09/15/21 08:51 CT cervical spine wo con CLINICAL HISTORY: fall TECHNIQUE: Multidetector row helical CT of the cervical spine was performed without administration of intravenous contrast. Coronal and sagittal reformations were obtained. Automated dose lowering techniques and/or adjustment according to patient size were utilized for this exam. Comparison: None available at the time of this dictation. FINDINGS: No acute fractures or subluxations are identified. The vertebral body heights and disk spaces are well maintained. The alignment is normal. Nuchal ligament calcifications are seen. IMPRESSION: No evidence of acute bony injury. ACT 112: Negative or not required by law. Electronically signed by: Warren Patel M.D. 09/15/2021 10:[address] 09/15/21 08:51 CT head/brain wo con CLINICAL HISTORY: 66 years-old Female with fall, confusion. Acute head injury status post fall. Acutely altered mental status TECHNIQUE: Multiple axial CT images of the head were obtained without contrast. A dose lowering technique was utilized adhering to the principles of ALARA. COMPARISON: CT cervical and thoracic spine studies of same day FINDINGS: No acute intracranial hemorrhage, midline shift, intracranial mass, hydrocephalus, territorial ischemia or abnormal extra-axial collection. Age- related involutional changes. White matter hypodensities suggestive of chronic microvascular ischemic disease. Mild ventriculomegaly, likely on an ex vacuo basis. Chronic periventricular left frontal lobe infarcts. Cerebral vascular calcifications. The calvarium is intact. Mucosal thickening of the paranasal sinuses, moderate within the ethmoid air cells. Aerosolized secretions within the left sphenoid sinus. Mastoid air cells and middle ear cavities are clear. Unremarkable soft tissues and orbits. IMPRESSION: No acute intracranial abnormality or calvarial fracture. ACT 112: Negative or not required by law. The above report was generated using voice recognition software. It may contain grammatical, syntax or spelling errors. Electronically signed by: Rick Gallego M.D. 09/15/2021 9:[address] 09/15/21 08:51 CT thoracic spine wo con HISTORY: 66 years-old Female fall acute mid back pain status post fall COMPARISON: CT cervical spine of same day TECHNIQUE: Multiple axial CT images of the thoracic spine were obtained without the use of IV contrast. Coronal and sagittal reformatted images were also submitted for review. A dose lowering technique was used consistent with the principals of ALARA. FINDINGS: Cardiomegaly with extensive mitral annular and coronary artery calcifications. Ectasia of the ascending thoracic aorta measures up to 3.9 cm. Dilated pulmonary artery may represent pulmonary arterial hypertension. Mediastinal and hilar lymph nodes measure within the upper limits of normal at 10 mm which are nonspecific. Tiny hiatal hernia suggested. Cholecystectomy. Bronchial wall thickening with mucous plugging. No pneumothorax identified. There is no paravertebral edema identified. There is mostly mild multilevel intervertebral disc space narrowing with associated spondylitic spurring and facet arthrosis. No acute fracture or subluxation is identified. The imaged ribs appear intact. No high-grade central canal or neural foraminal narrowing is identified. IMPRESSION: No acute fracture or subluxation. ACT 112: Negative or not required by law. The above report was generated using voice recognition software. It may contain grammatical, syntax or spelling errors. Electronically signed by: Rick Gallego M.D. 09/15/2021 10:00 AM Code Status & VTE Plan Code Status Full code VTE Prophylaxis Plan VTE Prophylaxis will be ordered: Yes Supervising Physician Co-Signing Physician Notes Patient seen and examined independently at bedside. Chart reviewed. Discussed the case with Fina ANDERSEN and agree with the documentation. In summary, this is a 66 year old female with DM-2 on insulin who presented to the ED with fall at home, no LOC. Found to have DKA and UTI on work up but no acute fractures or bleed in CT head, cervical and thoracic spine. Currently AAO, mentating fine, states thirsty and hungry and asking for food. Oral mucosa moist, chest clear, abdomen benign, no edema, heart sounds normal. States she had ongoing vomiting, fever and not feeling well for the past 2 days. Admit to PCU on DKA protocol on insulin drip, IVF with frequent monitoring of labs to follow up on electrolytes, anion gap and BG. Once anion gap closed, can transition iv insulin to basal bolus insulin. Continue rocephin for UTI pending culture results. PT/OT evaluation. Rest as per the note above.
[2021-09-15] MEDS ORDERED: PENDING 1/2NSS+40mEq KCL IVF SCH (11:37)
[2021-09-15] MEDS ORDERED: DKA GOAL RANGE 150-250 mg/dl ONE (11:37)
[2021-09-15] MEDS ORDERED: INSULIN REGULAR 250 UNITS in SODIUM CHLORIDE 0.9% 247.5 ML IV SCH (11:56)
[2021-09-15] MEDS ORDERED: NovoLIN-R BOLUS FROM BAG IV ONE (12:15)
[2021-09-15] MEDS ORDERED: POTASSIUM CHLORIDE 40 MEQ in SODIUM CHLORIDE 0.45 % 1,000 ML IV SCH (12:15)
[2021-09-15] MEDS: PANTOprazole 40 MG TAB PO SCH (12:18)
[2021-09-15] MEDS: carvediloL 6.25 MG TAB PO SCH ×2 (12:18→20:34)
[2021-09-15] MEDS: lisinopril 2.5 MG TAB PO SCH (12:18)
[2021-09-15] MEDS: INSULIN REGULAR 250 UNITS in SODIUM CHLORIDE 0.9% 247.5 ML IV SCH (13:14)
[2021-09-15] MEDS: INSULIN ASPART PER UNIT SC SCH ×3 (14:17→20:23)
[2021-09-15] MEDS ORDERED: CETIRIZINE HCL 10 MG TABLET PO PRN (14:38)
[2021-09-15] MEDS ORDERED: PHARMACY GLYCEMIC MGMT CONSULT PRN (14:38)
[2021-09-15] MEDS ORDERED: ONDANSETRON INJ 2 MG/ML 2 ML VIAL IV PRN (14:38)
[2021-09-15] MEDS ORDERED: ACETAMINOPHEN 325 MG TAB PO PRN (14:38)
--- NOTE | 2021-09-15 15:12 | Pharmacy Report ---
Pharmacy Glycemic Short Note 2 - Date of Service September 15, 2021 - Glycemic Short BSG Results (Last 24 hours): 09/15/21 09/15/21 08:58 14:15 Glucose 378 H* POC Glucose 173 H OUTPATIENT ANTIDIABETIC REGIMEN: * Lantus 25 units SC qAM * Novolog 30 units SC TIDM * Trulicity 0.75 mg SC daily * HbA1c pending ASSESSMENT: * DC is a 66 year old female who presents to the ED from home s/p fall and several days of nausea/vomiting * Patient reportedly not taking insulin correctly at home, found to be in DKA on presentation * BSG of 378 mg/dL, serum bicarbonate 12, anion gap of 22 and pH of 7.24 * Insulin infusion and IV fluids initiated/infusing * Will plan to transition to SC basal/bolus insulin once anion gap closed * Ceftriaxone initiated due to concern for UTI PLAN FOR INPATIENT GLYCEMIC CONTROL: * Hold Victoza * Insulin infusion to correct DKA * Basal insulin * hold for now * Bolus insulin * NovoLog per scale ACHS per insulin calculator
[2021-09-15] MEDS ORDERED: D5W AND 1/2NSS + 20MEQ KCL 20 MEQ/1,000 ML BAG IV SCH (15:15)
[2021-09-15 15:55] LABS: BUN Creatinine Ratio 25.6 (10-20); Calcium 9.2 mg/dl (8.5-10.1); Creatinine Clr Calc Pharmacy 60.5 ml/min; Est GFR (Non-African American) 69.9 ml/min; Magnesium 1.7 mg/dl (1.7-2.4); Phosphorus 1.9 mg/dl (2.5-4.9); Potassium 3.9 mmol/L (3.5-5.1)
[2021-09-15] MEDS ORDERED: DEXTROSE 50% 50 ML SYRINGE IV PRN (16:00)
[2021-09-15] MEDS ORDERED: GLUCOSE 40% GEL 15 GM TUBE PO PRN (16:00)
[2021-09-15] MEDS ORDERED: GLUCOSE 10 TABS/TUBE PO PRN (16:00)
[2021-09-15] MEDS ORDERED: GLUCAGON FOR INJ 1 MG VIAL IM PRN (16:00)
[2021-09-15] MEDS ORDERED: CARBOHYDRATES FOR HYPOGLYCEMIA PO PRN (16:00)
[2021-09-15 16:05] LABS: Estimated Average Glucose 381 mg/dl; Hemoglobin A1C 14.9 % (4.5-5.6)
[2021-09-15] MEDS ORDERED: POTASSIUM PHOS 3 MMOL/1 ML INFUSION IV ONE (19:09)
[2021-09-15] MEDS ORDERED: POTASSIUM PHOSPHATE 21 MMOL in DEXTROSE 5% 500 ML IV ONE (19:15)
[2021-09-15 20:14] LABS: BUN Creatinine Ratio 27.5 (10-20); Calcium 8.8 mg/dl (8.5-10.1); Est GFR (African American) 88.4 ml/min; Est GFR (Non-African American) 76.3 ml/min; Magnesium 1.6 mg/dl (1.7-2.4); Phosphorus 1.6 mg/dl (2.5-4.9); Potassium 3.9 mmol/L (3.5-5.1)
[2021-09-15] MEDS: HEPARIN SOD 5,000 UNIT/0.5 ML VIAL SQ SCH (20:33)
[2021-09-15] MEDS ORDERED: INSULIN GLARGINE SOLOSTAR 100 UNITS/ML 3 ML PEN SC ONE (21:00)
[2021-09-15] MEDS: NSS + 20MEQ KCL 20 MEQ/1,000 ML BAG IV SCH (21:26)
--- NOTE | 2021-09-15 22:27 | Electrocardiogram Report ---
Test Reason : Blood Pressure : / mmHG Vent. Rate : 103 BPM Atrial Rate : 103 BPM P-R Int : 136 ms QRS Dur : 076 ms QT Int : 370 ms P-R-T Axes : 051 052 048 degrees QTc Int : 484 ms Poor data quality, interpretation may be adversely affected Sinus tachycardia Otherwise normal ECG No previous ECGs available Confirmed by Boyd Jones ([id number]) on 09/15/2021 10:26:54 PM Referred By: REFERRED SELF Confirmed By:Boyd Jones
[2021-09-15] MEDS: MAGNESIUM OXIDE 400 MG TAB PO SCH (22:34)
[2021-09-15 22:59] LABS: BUN Creatinine Ratio 26.7 (10-20); Calcium 8.5 mg/dl (8.5-10.1); Creatinine Clr Calc Pharmacy 69.4 ml/min; Est GFR (African American) 95.6 ml/min; Est GFR (Non-African American) 82.5 ml/min; Magnesium 1.5 mg/dl (1.7-2.4); Phosphorus 2.2 mg/dl (2.5-4.9); Potassium 4.2 mmol/L (3.5-5.1)
[2021-09-16 04:05] LABS: BUN Creatinine Ratio 26.5 (10-20); Calcium 8.7 mg/dl (8.5-10.1); Creatinine Clr Calc Pharmacy 76.5 ml/min; Est GFR (African American) 104.9 ml/min; Est GFR (Non-African American) 90.5 ml/min; Magnesium 1.5 mg/dl (1.7-2.4); Phosphorus 2.1 mg/dl (2.5-4.9)
[2021-09-16] MEDS: NSS + 20MEQ KCL 20 MEQ/1,000 ML BAG IV SCH ×2 (06:27→17:16)
[2021-09-16 07:52] LABS: BUN Creatinine Ratio 26.6 (10-20); Calcium 8.8 mg/dl (8.5-10.1); Est GFR (Non-African American) 92.3 ml/min; Magnesium 1.6 mg/dl (1.7-2.4); Phosphorus 1.8 mg/dl (2.5-4.9)
[2021-09-16] MEDS: INSULIN ASPART PER UNIT SC SCH ×6 (08:14→23:40)
[2021-09-16] MEDS ORDERED: INSULIN GLARGINE SOLOSTAR 100 UNITS/ML 3 ML PEN SC ONE (08:15)
[2021-09-16] MEDS: ATORVASTATIN 40 MG TAB PO SCH (08:20)
[2021-09-16] MEDS: lisinopril 2.5 MG TAB PO SCH (08:20)
[2021-09-16] MEDS: carvediloL 6.25 MG TAB PO SCH ×2 (08:20→20:16)
[2021-09-16] MEDS: MAGNESIUM OXIDE 400 MG TAB PO SCH ×2 (08:20→20:18)
[2021-09-16] MEDS: FLUTICASONE PROPIONATE NA SPR 16 GM BTL NAE SCH (08:21)
[2021-09-16] MEDS: HEPARIN SOD 5,000 UNIT/0.5 ML VIAL SQ SCH ×2 (08:21→20:17)
[2021-09-16] MEDS: PANTOprazole 40 MG TAB PO SCH (08:24)
[2021-09-16] MEDS: ASPIRIN 81 MG ECTAB PO SCH (08:24)
[2021-09-16] MEDS ORDERED: LANTUS PER UNIT CHARGE SQ SCH (09:00)
[2021-09-16] MEDS ORDERED: NON-FORMULARY MEDICATION (Aspirin 81 mg capsule) PO SCH (09:00)
[2021-09-16] MEDS: POT PHOSPHATE MONOBASIC W/ SOD TAB PO SCH ×4 (10:15→20:18)
[2021-09-16 10:56] LABS: BUN Creatinine Ratio 22.5 (10-20); Calcium 8.6 mg/dl (8.5-10.1); Est GFR (African American) 102.2 ml/min; Est GFR (Non-African American) 88.1 ml/min
[2021-09-16] MEDS: cefTRIAXone SODIUM 2,000 MG in DEXTROSE 5% 50 ML IV SCH (11:10)
[2021-09-16] MEDS: ADVANCED PROBIOTIC 1250 MG CAPSULE PO SCH (12:22)
[2021-09-16] MEDS: DOXYCYCLINE HYCLATE 100 MG CAP PO SCH ×2 (12:22→20:17)
--- NOTE | 2021-09-16 13:40 | Hospitalist Progress Note ---
Date of Service September 16, 2021 Assessment & Plan (1) Diabetic ketoacidosis: (2) Acute dehydration: (3) Fall: (4) Weakness: (5) UTI (urinary tract infection): (6) Type 2 diabetes mellitus: Plan: Per admitting service notes with addendum - Admit to PCU for DKA - Start on insulin gtt, 1/2NSS + 40 KCL at 125 ml, DKA protocol - Pt got 1 L NSS, insulin 6 U in the ER - Likely worsened secondary to infectious source, most likely is UTI, follow urine culture and has been started on ceftriaxone IV - VBG with pH 7.24, Co2 31, HCO3 13, - Hyponatremic with Na 127, K 4.5, carbon dioxide 12, AG 22, BUn 26, Cr. 1.02, glucose 378 - Hold on subq insulin home regimen while on gtt, lantus 25 U QPM on hold as well for now - Allow a clear liquid diet - Imaging studies completed of the thoracic, cervical, head are negative - PT/OT consults placed 09/16 Anion gap closed Continue IV insulin, transition to subcutaneous insulin per pharmacy glycemic control A1c 14 unit educator consulted DKA likely secondary to underlying UTI and bacterial sinusitis Urine culture: Pending Continue IV ceftriaxone Start p.o. doxycycline (7) CAD (coronary artery disease): Plan: No cardiac symptoms Continue carvedilol, lisinopril, Lipitor, aspirin (8) Hypertension: Plan: Continue carvedilol and lisinopril (9) Dyslipidemia: Plan: Continue atorvastatin (10) COPD (chronic obstructive pulmonary disease): Plan: Not in exacerbation (11) Severe obesity: Plan: - BMI 35.6, encourage weight loss, diet and exercise throughout hospital stay DVT ppx: - teds, scds, heparin subq CODE: Full code Dispo: From home, likely to remain in the hospital x 1-2 days PT/OT evaluation Admission and Anticipated Discharge Date Admission Date: September 15, 2021 Subjective Follow-up for DKA, UTI, etc. Seen resting in bed, comfortable, laying down Not in distress States that she feels improved compared to yesterday but still weak Still has dysuria, but no fevers or chills, abdominal pain or flank pain Reporting nasal congestion, dry cough, pressure over frontal and maxillary sinuses no chest pain, dyspnea, palpitations, dizziness No other symptoms Review of Systems Review of Systems: all noted and negative except for above Physical Exam Physical Exam: General- oriented x 3, not in distress, speaks in sentences with no effort or accessory muscle use Somewhat weak Head- atraumatic Eyes- PERRL, EOMI, anicteric ENT- oropharynx clear Possible tenderness on the frontal and maxillary sinuses Neck- supple, no JVD, no adenopathy, no thyromegaly; carotids +2/2, no bruits appreciated Lungs- clear to auscultation bilaterally, no rales/wheezes Heart- normal rate, regular rhythm; no murmur, no gallop, no rub appreciated Abdomen- normal bowel sounds, nondistended, soft, nontender, no masses or hepatosplenomegaly No CVA tenderness Extremities- no pretibial edema, no calf tenderness; peripheral pulses intact Neuro- alert, oriented x 3; CN 2-12 grossly intact; motor 5/5 bilaterally;sensation 100% on all extremities; no other gross focal neurologic deficits Skin- warm & dry Results & Data Results & Data ([facility]) Vital Signs (Past 12 Hours) Vital Signs Temp Pulse Resp BP Pulse Ox 09/16/21 10:51 36.9 C 95 H 19 121/79 95 09/16/21 07:35 37 C 87 18 104/66 95 all noted and reviewed including below
--- NOTE | 2021-09-16 14:08 | Pharmacy Report ---
Pharmacy Glycemic Short Note 2 - Date of Service September 16, 2021 - Glycemic Short BSG Results (Last 24 hours): 09/15/21 09/15/21 09/15/21 14:15 14:53 15:48 Glucose 130 H POC Glucose 173 H 126 H 09/15/21 09/15/21 09/15/21 16:48 17:53 18:47 Glucose POC Glucose 122 H 250 H 319 H* 09/15/21 09/15/21 09/15/21 19:14 19:47 20:46 Glucose 267 H POC Glucose 278 H 251 H 09/15/21 09/15/21 09/15/21 21:39 22:33 22:56 Glucose 219 H POC Glucose 255 H 201 H 09/15/21 09/16/21 09/16/21 23:57 00:52 01:46 Glucose POC Glucose 173 H 176 H 133 H 09/16/21 09/16/21 09/16/21 03:01 03:25 03:28 Glucose 93 POC Glucose 98 108 H 09/16/21 09/16/21 09/16/21 03:44 04:04 05:13 Glucose POC Glucose 112 H 122 H 123 H 09/16/21 09/16/21 09/16/21 06:01 06:59 07:07 Glucose 121 H POC Glucose 124 H 117 H 09/16/21 09/16/21 09/16/21 08:04 09:14 09:14 Glucose POC Glucose 132 H 385 H* 396 H* 09/16/21 09/16/21 09/16/21 10:15 10:20 12:00 Glucose 274 H POC Glucose 253 H 237 H 09/16/21 09/16/21 13:09 13:56 Glucose POC Glucose 271 H 200 H OUTPATIENT ANTIDIABETIC REGIMEN: * Lantus 25 units SC qAM * Novolog 30 units SC TIDM * Trulicity 0.75 mg SC daily * HbA1c pending ASSESSMENT: 09/16 * Patient continues on insulin drip this AM, despite 20 units Lantus given last evening. Patient had been on clears, no PO intake noted yesterday. Drip held briefly this AM, but then resumed - gave an additional 10 units of Lantus * BSGs trending up with meals as patient eating today. BSGs now trending down this afternoon. Currently infusing at 2 ml/hr. Likely can d/c drip when BSG in goal this afternoon * Will utilize scale for Lantus for HS tonight 09/15 * DC is a 66 year old female who presents to the ED from home s/p fall and several days of nausea/vomiting * Patient reportedly not taking insulin correctly at home, found to be in DKA on presentation * BSG of 378 mg/dL, serum bicarbonate 12, anion gap of 22 and pH of 7.24 * Insulin infusion and IV fluids initiated/infusing * Will plan to transition to SC basal/bolus insulin once anion gap closed * Ceftriaxone initiated due to concern for UTI PLAN FOR INPATIENT GLYCEMIC CONTROL: * Hold Victoza * Insulin infusion - discontinued this afternoon * Basal insulin * 20 units x 1 (09/15 PM) + 10 units x 1 (09/16 AM) * Lantus 30 HS * Bolus insulin * NovoLog per scale ACHS per insulin calculator * Once drip off will utilize 110-140 / CF 20 / CR 7
[2021-09-16] MEDS: INSULIN REGULAR 250 UNITS in SODIUM CHLORIDE 0.9% 247.5 ML IV SCH (19:06)
[2021-09-16] MEDS: INSULIN GLARGINE SOLOSTAR 100 UNITS/ML 3 ML PEN SC SCH (20:24)
[2021-09-17] MEDS: guaiFENesin SUGAR FREE 200 MG/10 ML UDC PO PRN ×2 (00:20→20:59)
[2021-09-17] MEDS: NSS + 20MEQ KCL 20 MEQ/1,000 ML BAG IV SCH ×2 (03:08→14:15)
[2021-09-17] MEDS: INSULIN ASPART PER UNIT SC SCH ×6 (04:28→20:57)
[2021-09-17 07:01] LABS: Basophils # (auto) 0.02 K/uL (0-0.2); Basophils % (auto) 0.2 %; Eosinophils # (auto) 0.11 K/uL (0-0.5); Hematocrit (blood only) 38.6 % (37-47); Immature Granulocytes # (auto) 0.02 K/uL (0.00-0.02); Immature Granulocytes % (auto) 0.2 %; Lymphocytes # (auto) 1.37 K/uL (1.2-3.4); Mean Corpuscular Hgb Conc 33.7 g/dL (32-36); Mean Corpuscular Volume 86.2 fL (80-100); Mean Platelet Volume 10.1 fL (7.4-10.4); Monocytes # (auto) 0.87 K/uL (0.11-0.59); Monocytes % (auto) 8.3 %; Neutrophils # (auto) 8.15 K/uL (1.4-6.5); Neutrophils % (auto) 77.3 %; Platelet Count 291 K/uL (130-400); RDW Standard Deviation 41.4 fL (36.4-46.3); Red Blood Count 4.48 M/uL (4.2-5.4); White Blood Count 10.54 K/uL (4.8-10.8)
[2021-09-17 07:21] LABS: BUN Creatinine Ratio 14.9 (10-20); Calcium 8.4 mg/dl (8.5-10.1); Creatinine Clr Calc Pharmacy 112.8 ml/min; Est GFR (African American) 118.5 ml/min; Est GFR (Non-African American) 102.2 ml/min; Magnesium 1.4 mg/dl (1.7-2.4); Phosphorus 2.4 mg/dl (2.5-4.9); Potassium 3.7 mmol/L (3.5-5.1)
[2021-09-17] MEDS: ADVANCED PROBIOTIC 1250 MG CAPSULE PO SCH (08:10)
[2021-09-17] MEDS: ATORVASTATIN 40 MG TAB PO SCH (08:11)
[2021-09-17] MEDS: PANTOprazole 40 MG TAB PO SCH (08:11)
[2021-09-17] MEDS: ASPIRIN 81 MG ECTAB PO SCH (08:11)
[2021-09-17] MEDS: HEPARIN SOD 5,000 UNIT/0.5 ML VIAL SQ SCH ×2 (08:11→20:56)
[2021-09-17] MEDS: lisinopril 2.5 MG TAB PO SCH (08:11)
[2021-09-17] MEDS: DOXYCYCLINE HYCLATE 100 MG CAP PO SCH ×2 (08:12→20:57)
[2021-09-17] MEDS: POT PHOSPHATE MONOBASIC W/ SOD TAB PO SCH ×4 (08:12→20:57)
[2021-09-17] MEDS: carvediloL 6.25 MG TAB PO SCH ×2 (08:12→20:56)
[2021-09-17] MEDS: MAGNESIUM OXIDE 400 MG TAB PO SCH (08:12)
[2021-09-17] MEDS: FLUTICASONE PROPIONATE NA SPR 16 GM BTL NAE SCH (08:12)
[2021-09-17] MEDS: MAGNESIUM SULFATE / D5W 1 GM/100 ML BAG IV SCH ×2 (09:44→11:38)
[2021-09-17] MEDS: cefTRIAXone SODIUM 2,000 MG in DEXTROSE 5% 50 ML IV SCH (12:12)
--- NOTE | 2021-09-17 14:18 | Pharmacy Report ---
Pharmacy Glycemic Short Note 2 - Date of Service September 17, 2021 - Glycemic Short BSG Results (Last 24 hours): 09/16/21 09/16/21 09/16/21 15:14 16:00 20:15 Glucose POC Glucose 166 H 148 H 180 H 09/16/21 09/17/21 09/17/21 23:38 04:13 06:20 Glucose 154 H POC Glucose 112 H 141 H 09/17/21 09/17/21 07:18 11:28 Glucose POC Glucose 160 H 164 H OUTPATIENT ANTIDIABETIC REGIMEN: * Lantus 25 units SC qAM * Novolog 30 units SC TIDM * Trulicity 0.75 mg SC daily * HbA1c pending ASSESSMENT: 09/17 * Patient received total of 58 units yesterday, + insulin drip only in AM. Of this, 30 units were basal insulin to help with drip transition * Received 30 units basal last evening, fasting BSG 154 mg/dL - will continue same basal * Tighten CR slightly this AM 09/16 * Patient continues on insulin drip this AM, despite 20 units Lantus given last evening. Patient had been on clears, no PO intake noted yesterday. Drip held briefly this AM, but then resumed - gave an additional 10 units of Lantus * BSGs trending up with meals as patient eating today. BSGs now trending down this afternoon. Currently infusing at 2 ml/hr. Likely can d/c drip when BSG in goal this afternoon * Will utilize scale for Lantus for HS tonight 09/15 * DC is a 66 year old female who presents to the ED from home s/p fall and several days of nausea/vomiting * Patient reportedly not taking insulin correctly at home, found to be in DKA on presentation * BSG of 378 mg/dL, serum bicarbonate 12, anion gap of 22 and pH of 7.24 * Insulin infusion and IV fluids initiated/infusing * Will plan to transition to SC basal/bolus insulin once anion gap closed * Ceftriaxone initiated due to concern for UTI PLAN FOR INPATIENT GLYCEMIC CONTROL: * Hold Victoza * Basal insulin * Lantus 30 daily at HS * Bolus insulin * NovoLog per scale ACHS * 110-140 / CF 20 / CR 6
--- NOTE | 2021-09-17 16:02 | Hospitalist Progress Note ---
Date of Service September 17, 2021 Assessment & Plan (1) Diabetic ketoacidosis: (2) Acute dehydration: (3) Fall: (4) Weakness: (5) UTI (urinary tract infection): (6) Type 2 diabetes mellitus: Plan: Per admitting service notes with addendum - Admit to PCU for DKA - Start on insulin gtt, 1/2NSS + 40 KCL at 125 ml, DKA protocol - Pt got 1 L NSS, insulin 6 U in the ER - Likely worsened secondary to infectious source, most likely is UTI, follow urine culture and has been started on ceftriaxone IV - VBG with pH 7.24, Co2 31, HCO3 13, - Hyponatremic with Na 127, K 4.5, carbon dioxide 12, AG 22, BUn 26, Cr. 1.02, glucose 378 - Hold on subq insulin home regimen while on gtt, lantus 25 U QPM on hold as well for now - Allow a clear liquid diet - Imaging studies completed of the thoracic, cervical, head are negative - PT/OT consults placed 09/17 Anion gap closed transitioned to SC Lantus and Novolog A1c 14 special education paraeducator consulted DKA likely secondary to underlying UTI and bacterial sinusitis Urine culture: negative Continue IV ceftriaxone and Doxy PO overall clinically improving (7) CAD (coronary artery disease): Plan: No cardiac symptoms Continue carvedilol, lisinopril, Lipitor, aspirin (8) Hypertension: Plan: Continue carvedilol and lisinopril (9) Dyslipidemia: Plan: Continue atorvastatin (10) COPD (chronic obstructive pulmonary disease): Plan: Not in exacerbation (11) Severe obesity: Plan: - BMI 35.6, encourage weight loss, diet and exercise throughout hospital stay DVT ppx: - teds, scds, heparin subq CODE: Full code Dispo: From home, likely to remain in the hospital x 1-2 days PT/OT evaluation Admission and Anticipated Discharge Date Admission Date: September 15, 2021 Subjective ff up for DKA, UTI, sinusitis, etc seen resting in bed, comfortable states she continues to feel improved less sinus congestion, drainage and cough no dysuria, abdominal pain, fever/chills no other symptoms Review of Systems Review of Systems: all noted and negative except for above Physical Exam Physical Exam: General- oriented x 3, not in distress, speaks in sentences with no effort or accessory muscle use Eyes- anicteric Neck- no JVD Lungs- clear BS bilaterally, no rales/wheezes Heart- normal rate, regular rhythm; no murmurs Abdomen- normal bowel sounds, nondistended, soft, no tenderness noted Extremities- no pretibial edema, no calf tenderness Neuro- alert, oriented x 3; no gross focal neurologic deficits Skin- warm & dry Results & Data Results & Data ([facility]) Vital Signs (Past 12 Hours) Vital Signs Temp Pulse Resp BP BP Pulse Ox 09/17/21 11:42 36.7 C 88 18 115/74 96 09/17/21 07:30 37.1 C 93 H 18 139/82 91 09/17/21 04:26 37.1 C 95 H 18 130/76 95 all noted and reviewed including below
[2021-09-17] MEDS: MAGNESIUM CHLORIDE W/CALCIUM 64MG DELAYED REL TAB PO SCH (20:57)
[2021-09-17] MEDS: INSULIN GLARGINE SOLOSTAR 100 UNITS/ML 3 ML PEN SC SCH (20:58)
[2021-09-18] MEDS: NSS + 20MEQ KCL 20 MEQ/1,000 ML BAG IV SCH (03:58)
[2021-09-18 06:27] LABS: Basophils # (auto) 0.03 K/uL (0-0.2); Basophils % (auto) 0.2 %; Eosinophils # (auto) 0.09 K/uL (0-0.5); Eosinophils % (auto) 0.6 %; Hematocrit (blood only) 38.4 % (37-47); Hemoglobin 13.1 g/dL (12.0-16.0); Immature Granulocytes # (auto) 0.06 K/uL (0.00-0.02); Immature Granulocytes % (auto) 0.4 %; Lymphocytes # (auto) 1.52 K/uL (1.2-3.4); Lymphocytes % (auto) 10.2 %; Mean Corpuscular Hemoglobin 29.4 pg (25-34); Mean Corpuscular Hgb Conc 34.1 g/dL (32-36); Mean Corpuscular Volume 86.1 fL (80-100); Mean Platelet Volume 9.5 fL (7.4-10.4); Monocytes # (auto) 0.94 K/uL (0.11-0.59); Monocytes % (auto) 6.3 %; Neutrophils # (auto) 12.25 K/uL (1.4-6.5); Neutrophils % (auto) 82.3 %; Platelet Count 332 K/uL (130-400); RDW Coefficient of Variation 12.9 % (11.5-14.5); Red Blood Count 4.46 M/uL (4.2-5.4); White Blood Count 14.89 K/uL (4.8-10.8)
[2021-09-18 06:53] LABS: BUN Creatinine Ratio 8.5 (10-20); Calcium 8.5 mg/dl (8.5-10.1); Creatinine Clr Calc Pharmacy 113.1 ml/min; Est GFR (African American) 118.5 ml/min; Est GFR (Non-African American) 102.2 ml/min; Magnesium 1.6 mg/dl (1.7-2.4); Phosphorus 2.2 mg/dl (2.5-4.9); Potassium 3.7 mmol/L (3.5-5.1)
[2021-09-18] MEDS: ADVANCED PROBIOTIC 1250 MG CAPSULE PO SCH (08:04)
[2021-09-18] MEDS: FLUTICASONE PROPIONATE NA SPR 16 GM BTL NAE SCH (08:04)
[2021-09-18] MEDS: ASPIRIN 81 MG ECTAB PO SCH (08:04)
[2021-09-18] MEDS: ATORVASTATIN 40 MG TAB PO SCH (08:04)
[2021-09-18] MEDS: MAGNESIUM CHLORIDE W/CALCIUM 64MG DELAYED REL TAB PO SCH (08:04)
[2021-09-18] MEDS: carvediloL 6.25 MG TAB PO SCH (08:04)
[2021-09-18] MEDS: DOXYCYCLINE HYCLATE 100 MG CAP PO SCH (08:04)
[2021-09-18] MEDS: POT PHOSPHATE MONOBASIC W/ SOD TAB PO SCH ×2 (08:04→13:51)
[2021-09-18] MEDS: lisinopril 2.5 MG TAB PO SCH (08:04)
[2021-09-18] MEDS: PANTOprazole 40 MG TAB PO SCH (08:05)
[2021-09-18] MEDS: HEPARIN SOD 5,000 UNIT/0.5 ML VIAL SQ SCH (08:05)
[2021-09-18] MEDS: INSULIN ASPART PER UNIT SC SCH ×2 (08:12→13:00)
[2021-09-18] MEDS: cefTRIAXone SODIUM 2,000 MG in DEXTROSE 5% 50 ML IV SCH (10:42)
--- NOTE | 2021-09-18 12:19 | Hospitalist Progress Note ---
Date of Service September 18, 2021 Assessment & Plan (1) Diabetic ketoacidosis: (2) Acute dehydration: (3) Fall: (4) Weakness: (5) UTI (urinary tract infection): (6) Type 2 diabetes mellitus: Plan: Per admitting service notes with addendum - Admit to PCU for DKA - Start on insulin gtt, 1/2NSS + 40 KCL at 125 ml, DKA protocol - Pt got 1 L NSS, insulin 6 U in the ER - Likely worsened secondary to infectious source, most likely is UTI, follow urine culture and has been started on ceftriaxone IV - VBG with pH 7.24, Co2 31, HCO3 13, - Hyponatremic with Na 127, K 4.5, carbon dioxide 12, AG 22, BUn 26, Cr. 1.02, glucose 378 - Hold on subq insulin home regimen while on gtt, lantus 25 U QPM on hold as well for now - Allow a clear liquid diet - Imaging studies completed of the thoracic, cervical, head are negative - PT/OT consults placed 09/18 Anion gap closed transitioned to SC Lantus and Novolog A1c 14 mink slicer consulted Pharmacy glycemic control also following patient awaiting d/c recommendations Acute Bacterial sinusitis possible contributing to DKA Urine culture: negative given IV ceftriaxone and Doxy PO Day 3 urinary and sinus symptoms resolved continue Doxycycline x 4 more days ff up with PCP in 1 week (7) CAD (coronary artery disease): Plan: No cardiac symptoms Continue carvedilol, lisinopril, Lipitor, aspirin (8) Hypertension: Plan: Continue carvedilol and lisinopril (9) Dyslipidemia: Plan: Continue atorvastatin (10) COPD (chronic obstructive pulmonary disease): Plan: Not in exacerbation (11) Severe obesity: Plan: - BMI 35.6, encourage weight loss, diet and exercise throughout hospital stay DVT ppx: - teds, scds, heparin subq CODE: Full code Dispo: patient prefers to go home even after extensive discussion to transition to Rehab/SNF ff up with PCP this week Admission and Anticipated Discharge Date Admission Date: September 15, 2021 Subjective ff up for DKA, sinusitis, etc seen resting in bed, comfortable states she feels much better overall nasal and sinus congestion resolved, no drainage, mild dry cough no urinary symptoms no chest pain, dyspnea, palpitations, dizziness no abdominal pain, nausea/vomiting no other symptoms states she is ready and would like to be discharged today had a lengthy discussion with patient regarding PT/OT recommendation for Rehab/SNF patient adamantly declines, she said she absolutely does not want to go there explained risks, and benefits explained she is at high risk for falls, injuries, even if she goes home without getting stronger at Rehab patient verbalized understanding and acceptance of risk involved Nurse Coodinteddy Avalos Pankaj also talkde to patient and highly recommended home health services but she also declined will have [facility] at home follow patient closely Review of Systems Review of Systems: all noted and negative except for above Physical Exam Physical Exam: General- oriented x 3, not in distress, speaks in sentences with no effort or accessory muscle use Face- no sinus tenderness Eyes- anicteric Neck- no JVD Lungs- clear breath sounds bilaterally, no rales/wheezes Heart- normal rate, regular rhythm; no murmurs Abdomen- normal bowel sounds, nondistended, soft, nontender Extremities- no pretibial edema, no calf tenderness Neuro- alert, oriented x 3; no gross focal neurologic deficits Skin- warm & dry Results & Data Results & Data ([facility]) Vital Signs (Past 12 Hours) Vital Signs Temp Pulse Pulse Resp BP Pulse Ox 09/18/21 07:34 96 H 09/18/21 07:00 37.3 C 94 H 16 148/83 H 92 09/18/21 03:36 36.7 C 95 H 18 139/82 94 all noted and reviewed including below
--- NOTE | 2021-09-18 14:36 | Discharge Summary ---
Date of Service September 18, 2021 Admission HPI Per Admitting Provider This is a 66 yo F with PMHx of DM II, CAD, HTN, HLD, COPD, GERD, bipolar disorder and obesity with BMI of 35.6 who presents to the ER with acute illness status post fall sustained at home. When I ask how the patient is she responds "very thirsty". She has been unable to tolerate oral intake the last few days due to not feeling well, stated that every time she ate something she became nauseous and threw up. She reports using her insulin to me, however sign out from the ER indicated that she had not been using insulin at home. It is difficult to say due to her confusion if she was truly taking insulin correctly at home or not. She reports being very weak whenever she got up from her bed and walked to the living room at some point this morning. Pt was concerned that she hurt herself when she fell near her couch - no injuries are visible. She admits to significant urinary frequency over the past 2-3 days, but denies burning, lower abdominal pain or hematuria, fevers, chills or sweats. Unfortunately she is confused and cannot offer specifics; unable to answer what month it is, the year, the name of the hospital this morning. Pt did not taking any of her other morning medications today. Currently she lives at home by herself, and relies on her 2 sisters to help take care of her. UA appears to be infected, suspicious for UTI, and has been started on IV ceftriaxone in the ER. WBC is elevated at 17 K. Upon presentation VBG shows pH of 7.3, CO2 31, chemistry panel shows sodium 127, potassium 4.5, carbon dioxide 12, anion gap 22, glucose of 378. Admission Exam Per Admitting Provider General: awake, disoriented to place and time, no apparent distress, able to participate in conversation although is unable to provide specific details, + obses with BMI=35.6 Head: Normocephalic, atraumatic ENT: PERRL, EOMI, right eye is shut, somewhat swollen and conjunctiva is mildly erythematous, no pharyngeal exudate, mucous membranes moist Chest: Clear to auscultation, on room air with O2 sats at 98% no adventitious breath sounds Cardiac: Regular rate and rhythm, no murmur, no JVD, normal peripheral pulses, good capillary refill Abdominal: NABS x 4 quadrants, soft, nondistended, nontender to palpation, no rebound or guarding Extremities: Normal inspection, no peripheral edema or erythema, calfs nontender to palpation Psych: Normal mood and affect Neuro: AAO to self but not date or time, unable to answer specific questions, somewhat confused, strength intact bilaterally and rated 4/5, no motor deficits, speech is clear, no peripheral sensory deficits Principal Diagnosis DIABETIC KETOACIDOSIS ACUTE BACTERIAL SINUSITIS Discharge Exam General- oriented x 3, not in distress, speaks in sentences with no effort or accessory muscle use Face- no sinus tenderness Eyes- anicteric Neck- no JVD Lungs- clear breath sounds bilaterally, no rales/wheezes Heart- normal rate, regular rhythm; no murmurs Abdomen- normal bowel sounds, nondistended, soft, nontender Extremities- no pretibial edema, no calf tenderness Neuro- alert, oriented x 3; no gross focal neurologic deficits Skin- warm & dry Discharge Data Allergies Allergy/AdvReac Type Severity Reaction Status Date / Time egg Allergy Mild Verified 09/15/21 10:35 Penicillins Allergy Mild Verified 09/15/21 10:35 codeine Allergy Verified 09/15/21 10:35 Sulfa (Sulfonamide Allergy Verified 09/15/21 10:35 Antibiotics) Consultations 09/15/21 10:53 ED Decision to Admit Stat Ordered Studies 09/15/21 08:51 CT cervical spine wo con Stat FINDINGS: No acute fractures or subluxations are identified. The vertebral body heights and disk spaces are well maintained. The alignment is normal. Nuchal ligament calcifications are seen. IMPRESSION: No evidence of acute bony injury. CT head/brain wo con Stat IMPRESSION: No acute intracranial abnormality or calvarial fracture. CT thoracic spine wo con Stat FINDINGS: Cardiomegaly with extensive mitral annular and coronary artery calcifications. Ectasia of the ascending thoracic aorta measures up to 3.9 cm. Dilated pulmonary artery may represent pulmonary arterial hypertension. Mediastinal and hilar lymph nodes measure within the upper limits of normal at 10 mm which are nonspecific. Tiny hiatal hernia suggested. Cholecystectomy. Bronchial wall thickening with mucous plugging. No pneumothorax identified. There is no paravertebral edema identified. There is mostly mild multilevel intervertebral disc space narrowing with associated spondylitic spurring and facet arthrosis. No acute fracture or subluxation is identified. The imaged ribs appear intact. No high-grade central canal or neural foraminal narrowing is identified. IMPRESSION: No acute fracture or subluxation. XR chest 1V portable HISTORY: 66 years-old Female weakness acute chest and back pain with weakness COMPARISON: CT thoracic spine of same day TECHNIQUE: Portable AP view of the chest FINDINGS: The cardiomediastinal and hilar silhouettes are within normal limits. No pneumothorax, pleural effusion, airspace consolidation or overt pulmonary edema. Degenerative changes of the shoulders and spine. IMPRESSION: No acute process. ACT 112: Negative or not required by law. Diabetes Follow up Diabetes Follow-up Needed for HgbA1c >9% Hospital Course (1) Diabetic ketoacidosis: (2) Acute dehydration: (3) Fall: (4) Weakness: (5) UTI (urinary tract infection): (6) Type 2 diabetes mellitus: Per admitting service notes with addendum - Admit to PCU for DKA - Start on insulin gtt, 1/2NSS + 40 KCL at 125 ml, DKA protocol - Pt got 1 L NSS, insulin 6 U in the ER - Likely worsened secondary to infectious source, most likely is UTI, follow urine culture and has been started on ceftriaxone IV - VBG with pH 7.24, Co2 31, HCO3 13, - Hyponatremic with Na 127, K 4.5, carbon dioxide 12, AG 22, BUn 26, Cr. 1.02, glucose 378 - Hold on subq insulin home regimen while on gtt, lantus 25 U QPM on hold as well for now - Allow a clear liquid diet - Imaging studies completed of the thoracic, cervical, head are negative - PT/OT consults placed 09/18 Anion gap closed transitioned to SC Lantus and Novolog A1c 14 clinical educator consulted Pharmacy glycemic control also following patient D/C recommendations: Lantus 30 units daily Novolog 15 units TID Acute Bacterial sinusitis possible contributing to DKA Urine culture: negative given IV ceftriaxone and Doxy PO Day 3 urinary and sinus symptoms resolved continue Doxycycline x 4 more days ff up with PCP in 1 week (7) CAD (coronary artery disease): No cardiac symptoms Continue carvedilol, lisinopril, Lipitor, aspirin (8) Hypertension: Continue carvedilol and lisinopril (9) Dyslipidemia: Continue atorvastatin (10) COPD (chronic obstructive pulmonary disease): Not in exacerbation (11) Severe obesity: - BMI 35.6, encourage weight loss, diet and exercise throughout hospital stay DVT ppx: - teds, scds, heparin subq CODE: Full code Dispo: patient prefers to go home even after extensive discussion to transition to Rehab/SNF ff up with PCP this week Total Time Total Time Spent Total Time Spent (In Minutes): >30 minutes Discharge Plan Discharge Items Patient Disposition: Home - Self-Care Reason For Visit: UTI, METABOLIC ACIDOSIS, DKA Discharge Diagnosis: Diabetic ketoacidosis Acute bacterial sinusitis Activity: As commented below Activity Comment: Always ambulate carefully to prevent falls Lifting: Wait until after follow-up appointment Exercise/Sports: Wait until after follow-up appointment Driving/Machine Use: no driving until reevaluated and allowed by physician Non-emergency contact: Primary Care Provider Call non-emergency contact if: you have any medication questions, your symptoms worsen, your pain is not controlled, your pain is worsening, your pain is unusual for you, your pain is concerning for you and you have a fever Follow-up/Referrals: Jaurez Martinez MD [Outside Practitioners] - (Date & Time 09/25/2021 3:00 PM Provider Juarez Martinez MD Department Family [facility] ) Diet: Carb Consistent or DM2 and Heart Healthy Addtl Attending Provider Instructions: PLEASE REFER TO YOUR NEW MEDICATION LIST AND FOLLOW INSTRUCTIONS CAREFULLY. YOUR NEW MEDICATIONS INCLUDE: Doxycycline-antibiotic for bacterial sinusitis Take a probiotic daily x14 days at least to prevent diarrhea. Drink plenty of water every day -6 to 8 glasses a day. PLEASE CALL YOUR PRIMARY CARE PHYSICIAN OR RETURN TO THE ER IF WITH WORSENING OF SYMPTOMS, INCLUDING Blood sugar persistently above 180, weakness, fevers or chills, nausea or vomiting, urinary symptoms, abdominal pain, etc. FOLLOW UP WITH PRIMARY CARE PHYSICIAN in 1 week. Pending Studies at Discharge: No Stand-Alone Forms: My TheraCoat, Smoking Cessation Medications and DC Order Prescriptions: New doxycycline hyclate 100 mg Capsule 100 mg PO BID 5 Days Qty: 10 RF: 0 Mag 64 64 mg Tablet,Delayed Release (Dr/Ec) 64 mg PO BID 5 Days Qty: 10 RF: 0 U-Viyo-Cornqxj 250 mg tablet 1 tab PO TID 3 Days Qty: 9 RF: 0 Continued atorvastatin 40 mg tablet 40 mg PO DAILY Qty: 30 RF: 2 Trulicity 0.75 mg/0.5 mL pen injector 0.75 mg subcut .weekly Qty: 0.5 RF: 0 fluticasone propionate [Flonase Allergy Relief] 50 mcg/actuation spray,suspension 1 spray intranasal DAILY Qty: 16 RF: 2 cetirizine [Zyrtec] 10 mg tablet 10 mg PO DAILY PRN (Reason: allergy symptoms) Qty: 30 RF: 0 (DME) pen needle, diabetic [Easy Comfort Pen [place]] 31 gauge x 5/16" needle See Rx Instructions .ROUTE Qty: 50 RF: 0 (DME) OneTouch Verio test strips Strip See Rx Instructions .ROUTE Qty: 100 RF: 0 aspirin 81 mg capsule 81 mg PO DAILY Qty: 30 RF: 2 carvedilol 6.25 mg tablet 6.25 mg PO BID Qty: 180 RF: 3 lisinopril 2.5 mg tablet 2.5 mg PO DAILY Qty: 30 RF: 2 pantoprazole 40 mg tablet,delayed release (DR/EC) 40 mg PO DAILY Qty: 30 RF: 2 Changed Lantus U-100 Insulin 100 unit/mL solution 30 unit subcut DAILY Qty: 10 RF: 3 insulin aspart U-100 [Novolog Flexpen U-100 Insulin] 100 unit/mL (3 mL) insulin pen 15 unit subcut TID Qty: 15 RF: 3 Discharge Orders: Discharge Order (Routine); Ordered 09/18/21 Ordered By: Sean Lucas Admission Data Admit Date/Time: 09/15/21 12:41 Attending Provider: Sean Lucas Admit Provider: Fantasma Manzano Primary Care Provider: PCP,NO Other Providers: Fantasma Manzano
== END 2021-09-18 17:24 | disposition home or self-care (01) | DRG 638 ==
LOC: ED 08:29 → 2S 12:41 → SUATTDRO 12:41 → 2S 13:49 → 3N 09-18 10:06